=== PATIENT | male | born 1940 | race Caucasian/White ===

== ENCOUNTER 2016-04-09 11:24 | Outpatient (CLI) | payer MEDICARE, OTHER | END 2016-04-09 11:25 | LOC: POD 11:24 | PROVIDERS: ATTEND Podiatrist Public Medicine | DX: B35.1 Tinea unguium (principal); L60.0 Ingrowing nail; Z79.01 Long term (current) use of anticoagulants; M79.674 Pain in right toe(s); M79.675 Pain in left toe(s) | CPT/HCPCS: 11721; G0463 ==

== ENCOUNTER 2016-05-02 13:00 | Outpatient (CLI) | payer MEDICARE, OTHER ==
--- NOTE | 2016-05-02 18:16 | Diagnostic Imaging Report ---
PRANEETH DELEON [facility] [id number] [facility] [address] [address] Report Submission Date: May 02, 2016 3:11:36 PM DIRECTOR TREASURER Patient Study Name: JUSTIN FELIX Date: May 02, 2016 1:31:48 PM DIRECTOR TREASURER Modality Type: US Gender: M Description: UNILAT LTD STDY EXT VEINS : 36 Institution: [facility] Physician: PRANEETH DELEON Duplex sonography of the deep venous system of left lower extremity with color Doppler analysis Clinical history: Pain and swelling of the left ankle since yesterday No visible deep venous thrombosis, the veins are patent and normally compressed from the left inguinal region down to the lower calf. Doppler signals and Doppler waves are obtained and appear to be normal. Small area of calcification of the distal left femoral vein Impression: No visible deep venous thrombosis Edema of the left ankle Electronically signed on May 02, 2016 3:11:36 PM DIRECTOR TREASURER by: Justin TORREZ
== END 2016-05-02 13:01 ==
LOC: RAD 13:00
PROVIDERS: ATTEND Family Medicine
DX: Z86.711 Personal history of pulmonary embolism (principal); I87.1 Compression of vein
CPT/HCPCS: 93971

== ENCOUNTER 2016-08-13 10:22 | Outpatient (CLI) | payer MEDICARE, OTHER | END 2016-08-13 10:23 | LOC: POD 10:22 | PROVIDERS: ATTEND Podiatrist Public Medicine | DX: B35.1 Tinea unguium (principal); L60.0 Ingrowing nail; M79.674 Pain in right toe(s); M79.675 Pain in left toe(s); Z79.01 Long term (current) use of anticoagulants | CPT/HCPCS: 11721; G0463 ==